=== PATIENT | female | born 2005 | race Caucasian/White ===

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

== ENCOUNTER 2024-08-21 19:42 | Emergency (ER) | payer OTHER, SELFPAY ==
[2024-08-21 19:43] VITALS: BP 165/88; PULSE 102; RESP 15; TEMP 36; O2SAT 100; BMI 22.7
--- NOTE | 2024-08-21 20:22 | US_ITS ---
PROCEDURE: TRANSVAGINAL NON- 08/21/2024 REASON FOR EXAM: PELVIC PAIN. LEFT ALSO FOR IUD PLACEMENT. TECHNIQUE: Transvaginal pelvic ultrasound. Color and spectral doppler analysis of the ovaries. COMPARISON: None. FINDINGS: Measurements: Uterus: 5.7 x 2.2 x 3.4 cm for volume of 22.8 mL Endometrial Thickness: 0.3 cm Right Ovary: 3.2 x 1.7 x 1.9 cm for volume of 5.2 mL Left Ovary: 3.3 x 2.3 x 2.3 cm for volume of 9.0 mL Uterus: Anteverted. Normal contour and myometrial echotexture. Endometrium: Intrauterine device is in appropriate positioning, with tip near the fundal end of the endometrium. Right ovary: Normal size and echotexture. Left ovary: Normal size and echotexture. Other adnexal findings: None. Cul-de-sac: No free intraperitoneal fluid identified. DOPPLER: Color Doppler: Normal color flow doppler signal at both ovaries. Spectral Doppler: Normal arterial inflow and venous outflow signal at both ovaries. US/Transvaginal Non- IMPRESSION: Unremarkable transvaginal pelvic ultrasound, with appropriate positioning of th e intrauterine device. Reading Location: [facility]
--- NOTE | 2024-08-21 20:22 | ED.VIS.FEGU ---
HPI HPI - Female History of Present Illness Chief Complaint: Female C/O Informant: patient Pain Pain: Positive for Pelvic Pain Onset: Today and Yesterday Context: Gradual Onset Timing: Continuous Quality: Positive for Cramping Current Severity: Mild Maximum Severity: Mild Bleeding Issue: Positive for Vaginal bleeding and - (Mild spotting.) Onset: Today and Yesterday Timing: Intermittent Current Severity: Spotting Associated Symptoms Associated Symptoms: Negative for Dysuria, Frequency, Urgency or Hematuria P: 0 Ab: 0 Narrative Narrative: 18-year-old female G0, P0. Complains of pelvic cramping since last night progressively getting worse. Mild spotting. No clots. No dysuria. No vaginal discharge. She has never been . Denies any pelvic or abdominal surgeries. She has had the current IUD in for 2 years she thinks it may be dislodged. She cannot feel the string. Denies any fever. Prior similar symptoms: No Recent Illness/Hospitalization: No PFSH PFSH Medical History no medical history no medical history Home Medications ?Medication ?Instructions ?Recorded ?Last Taken ?Type spironolactone 100 mg tablet 1 tab PO DAILY 11/01/21 Unknown History IUD .Route 11/28/23 Unknown History escitalopram oxalate 10 mg tablet 10 mg PO DAILY 08/21/24 Unknown History Allergy/AdvReac Type Severity Reaction Status Date / Time No Known Allergies Allergy Verified 08/21/24 19:43 Surgical History Hx of tonsillectomy Social History Smoking Status: Never smoker ROS ROS ED ROS Narrative Pelvic cramping. Spotting. Constitutional Constitutional ED: Denies chills or fever(s) Eyes Eyes: Denies blurry vision ENT ENT ED: Denies ear pain Cardiovascular Cardiovascular: Denies chest pain Respiratory/Chest Respiratory/Chest: Denies cough or dyspnea Gastrointestinal Gastrointestinal: Reports other Details: Pelvic cramping. ; Denies abdominal pain, constipation, diarrhea, melena, nausea or vomiting Genitourinary Genitourinary ED: Denies dysuria or hematuria Musculoskeletal Musculoskeletal: Denies arthralgias, myalgias or neck pain Integumentary Denies abscess Neurologic Neurologic: Denies headache(s) Psychiatric Psychiatric: Denies anxiety Endocrine Endocrinology: Denies heat intolerance Hematologic/Lymphatic Hematologic/Lymphatic: Denies easy bleeding, easy bruising or lymphadenopathy Allergic/Immunologic Allergic/Immunologic ED: Denies mouth swelling, tongue swelling or urticaria EXAM Physical Exam Narrative Exam Narrative: Well-appearing 18-year-old female. Vital signs stable afebrile. H EENT exam pupils are reactive light. Moist with members. Lungs clear to auscultation bilaterally. Heart regular rhythm rate about 100 no murmur. Chest wall ribs nontender. Abdomen soft nondistended normal bowel sounds without peritoneal signs. No suprapubic tenderness. No hernia or mass. No distention. Back nontender. Moving all 4 extremities. Nontender no edema. Normal range of motion. Neurologically she is awake and alert no focal motor deficits. Const Vital Signs: 08/21/24 19:43 08/21/24 21:43 Temperature 96.8 F L Temperature Source Temporal Pulse Rate 102 H 80 Respiratory Rate 15 16 Blood Pressure 165/88 H 122/61 H Blood Pressure Mean 113 81 Pulse Ox 100 97 Oxygen Delivery Method Room Air Room Air Positive well nourished and well developed; Negative for obese, cachectic, contractures or unkempt General Appearance ED: well developed and NAD; Negative for unkempt, cachectic, contractures or pallor Nutritional Appearance: Negative for cachectic or obese HEENT Reports moist mucous membranes Negative for trauma or tenderness Eyes EOMs intact bilaterally Neck no lymphadenopathy, supple and no JVD Thyroid: Negative for tender Chest Wall inspection of chest normal and palpation of chest normal Resp normal respiratory effort and clear to auscultation bilaterally Cardio regular rate, regular rhythm, S1 normal heart sound, no murmurs and no JVD Rate: Negative for bradycardia or tachycardic Rhythm: Negative for abnormal rhythm GI normal to inspection, nondistended, normoactive bowel sounds, soft to palpation, non-tender, non-distended and no masses Auscultation: normoactive bowel sounds Palpation: Negative for tender, guarding, rigid, hepatomegaly, splenomegaly, mass or other Back/Spine no CVA tenderness Extremity normal to inspection and full ROM General Extremety ED: Negative for edema or tenderness General Extremity: Negative for edema Neuro oriented x3 and CN's II-XII intact bilaterally Sensorium / Orientation: alert, oriented to person, oriented to place and oriented to time; Negative for confused, lethargic or stuporous Psych mental status grossly normal Appearance: Negative for unkempt Skin no rashes or lesions noted and no wounds General Skin Exam: Negative for jaundice or pallor Rashes: No rashes noted MDM MDM MDM Narrative Medical decision making narrative: 18-year-old female complaining of pelvic cramping. Concerned her IUD may be out of place. She did not waiting for pain. I do not think we need blood work. UA and urine be obtained. Pelvic ultrasound for possible cyst versus displaced IUD. Currently patient wants to defer a pelvic exam at this time. Repeat exam patient doing well at 10:28 PM. We went over her test results. Abdomen benign. She be discharged home to follow-up with her PATIENT CARE TECHNICIAN. History & Record Review Discussion w/independent historian: Patient and Significant other Lab Data Attestation: I reviewed the patient's lab results. Lab results narrative: Urinalysis shows no acute abnormality. No nitrites. No white or red cells. 2+ bacteria. Pelvic ultrasound shows no acute abnormality. And normal positioning of the IUD. Urine test negative. Labs: Laboratory Results - last 24 hr 08/21/24 20:24 Urine Color Yellow Urine Clarity Sl. Cloudy Urine pH 5.0 Ur Specific [place] 1.025 Urine Protein 30 H Urine Glucose (UA) Normal Urine Ketones 5 H Urine Occult Blood 25 H Urine Nitrite Negative Urine Bilirubin Negative Urine Urobilinogen Normal Ur Leukocyte Esterase Negative Urine RBC 0 SEEN Urine WBC 0 SEEN Ur Squamous Epith Cells 5-10 SEEN Urine Bacteria 2+ Urine Mucus 1+ Urine Test Negative Radiography Diagnostic Testing: Clinical Impression(s) from Imaging Studies Transvaginal US 08/21/24 20:22 IMPRESSION: Unremarkable transvaginal pelvic ultrasound, with appropriate positioning of the intrauterine device. Reading Location: [id number] Discharge Plan Triage Chief Complaint: Female C/O ED Provider: Stephen Stapleton Dx/Rx/DC Orders Clinical Impression: Pelvic pain, History of use of contraceptive intrauterine device (IUD) Instructions: ED Pelvic Pain, Unknown Cause Prescriptions: No Action IUD .Route Rx Instructions: IUD spironolactone 100 mg tablet 1 tab PO DAILY escitalopram oxalate 10 mg tablet 10 mg PO DAILY Primary Care Provider: Arian Estrada Referrals: Arian Estrada MD [Primary Care Provider] - Michael Sprague MD [Med Staff - Active Staff] - As soon as possible Activity Restrictions/Additional Instructions: Your urine was negative. The ultrasound looked good. The IUD appears to be in place on the ultrasound. No specific cause for your pain. Motrin and Tylenol for pain. Follow-up with your PATIENT CARE TECHNICIAN for further evaluation. Print Language: Swedish Disposition Disposition: Home, Self Care
[2024-08-21 20:35] LABS: Red Blood Cells-Urine 0 SEEN /hpf (0-5); White Blood Cells 0 SEEN /hpf (0-5)
[2024-08-21 20:43] LABS: Color, Urine Yellow (Yellow); Glucose, Dipstick Normal (Normal); Ketone-Dipstick 5 mg/dl (Negative); Leukocyte Esterase-Dipstick Negative /ul (Negative); Nitrite-Dipstick Negative (Negative); Occult Blood-Urine 25 /ul (Negative); Protein-Dipstick 30 mg/dl (Negative); Specific Gravity, Urine 1.025 (1.002-1.030); Urine Bilirubin Dipstick Negative (Negative); Urine Clarity Sl. Cloudy (Clear); Urine Urobilinogen Normal (Normal)
[2024-08-21 21:05] LABS: Bacteria 2+ /hpf (None Seen); Squamous Epithelial Cells - UA 5-10 SEEN /hpf (5-10)
[2024-08-21 21:06] LABS: Internal QC Validated? YES +Cl - CLEAR BKGD; Mucous, Urine 1+ /hpf (<or=2+); Pregnancy, Urine Negative Negative
[2024-08-21 21:43] VITALS: BP 122/61; PULSE 80; RESP 16; O2SAT 97
[2024-08-21 22:29] VITALS: BP 122/61; PULSE 83; RESP 16; TEMP 37.1; O2SAT 97
== END 2024-08-21 22:32 | disposition home or self-care (01) ==
PROVIDERS: Emergency Provider Emergency Medicine; PCP Family Medicine; Visit Provider Emergency Medicine
DX: R10.2 Pelvic and perineal pain (principal); Z97.5 Presence of (intrauterine) contraceptive device
CPT/HCPCS: 76830; 81001; 81025; 99282

== ENCOUNTER → 2024-12-13 | Outpatient (CLI) | payer OTHER, SELFPAY | END | disposition home or self-care (01) | LOC: LABSPEC 14:12 | PROVIDERS: PCP Family Medicine; Referring Provider Physician Assistant Surgical; Visit Provider Physician Assistant Surgical | DX: R30.0 Dysuria (principal) | CPT/HCPCS: 87086; 87088; 87186 ==

== ENCOUNTER → 2025-03-14 | Outpatient (CLI) | payer OTHER, SELFPAY ==
--- NOTE | 2025-03-14 11:12 | RAD_ITS ---
PROCEDURE: FOOT MIN 3 VIEWS 03/14/2025 REASON FOR EXAM: FOOT INJURY TECHNIQUE: Procedure Code: RADFO Modality: DX Procedure: FOOT MIN 3 VIEWS Laterality: Right COMPARISON: None. FINDINGS: Bones: No acute bony elements. Joints: Unremarkable. Soft tissues: No soft tissue abnormalities. Other: RAD/Foot min 3 Views IMPRESSION: No acute osseous abnormalities. Reading Location: [id number]
== END | disposition home or self-care (01) ==
LOC: MTRAD 11:12
PROVIDERS: PCP Family Medicine; Referring Provider Physician Assistant Surgical; Visit Provider Physician Assistant Surgical
DX: S99.929A Unspecified injury of unspecified foot, initial encounter (principal)
CPT/HCPCS: 73630